=== PATIENT | female | born 1980 ===

== ENCOUNTER → 2020-07-29 | Outpatient (CLI) | payer OTHER ==
[~2020-07-29] MED LIST: ALBUTEROL2.5 MG/3 M IH; FLONASE16 GM NS; SINGULAIR 10MG10 MG PO; SYMBICORT 16010.2 GM IH; ZITHROMAX500 MG PO; ZYNCOF 20-400120 ML PO; ZYRTEC10 MG PO
== END | disposition home or self-care (01) ==
LOC: NUCLEAR 09:56
PROVIDERS: ATTEND Internal Medicine Cardiovascular Disease
DX: I82.493 Acute embolism and thrombosis of other specified deep vein of lower extremity, bilateral (principal); I87.2 Venous insufficiency (chronic) (peripheral)

== ENCOUNTER 2020-07-30 08:48 | Outpatient (CLI) | payer OTHER | END 2020-07-30 08:55 | disposition home or self-care (01) | LOC: NUCLEAR 08:48 | PROVIDERS: ATTEND Internal Medicine Cardiovascular Disease | DX: I82.493 Acute embolism and thrombosis of other specified deep vein of lower extremity, bilateral (principal); I73.9 Peripheral vascular disease, unspecified ==

== ENCOUNTER 2021-06-03 07:22 | Outpatient (CLI) | payer OTHER | END 2021-06-03 07:41 | disposition home or self-care (01) | LOC: SONOGRAMA 07:22 → EDSEX 07:22 → SONOGRAMA 07:41 | PROVIDERS: ATTEND Internal Medicine Cardiovascular Disease | DX: K76.0 Fatty (change of) liver, not elsewhere classified (principal) ==

== ENCOUNTER 2021-06-21 09:48 | Outpatient (CLI) | payer OTHER | END 2021-06-21 09:54 | disposition home or self-care (01) | LOC: RAD 09:48 | PROVIDERS: ATTEND Internal Medicine Pulmonary Disease | DX: J44.1 Chronic obstructive pulmonary disease with (acute) exacerbation (principal) ==